=== PATIENT | female | born 1995 | race Asian ===

== ENCOUNTER 2018-10-19 13:13 | Emergency (ER) | payer OTHER ==
[~2018-10-19] VITALS: Ht 162.6 cm; Wt 113.4 kg
[2018-10-19 15:22] LABS: PLATELET COUNT 255 K/uL (152-353)
[2018-10-19 15:44] LABS: POTASSIUM 3.7 mmol/L (3.6-5.2)
[2018-10-19 16:35] VITALS: BP 120/70; TEMP 98
== END 2018-10-19 16:35 | disposition home or self-care (01) ==
LOC: ED 13:13
PROVIDERS: Family Medicine
DX: K52.9 Noninfective gastroenteritis and colitis, unspecified (principal)
CPT/HCPCS: 80053; 81000; 85027; 99283

== ENCOUNTER 2019-03-03 20:20 | Emergency (ER) | payer OTHER ==
[~2019-03-03] VITALS: Ht 162.6 cm; Wt 104.3 kg
[2019-03-03 22:00] VITALS: BP 138/78; TEMP 98.3
== END 2019-03-03 22:00 | disposition home or self-care (01) ==
LOC: ED 20:20
DX: J06.9 Acute upper respiratory infection, unspecified (principal); K64.9 Unspecified hemorrhoids
CPT/HCPCS: 87502; 87651; 99283

== ENCOUNTER 2019-10-24 17:25 | Emergency (ER) | payer OTHER ==
[~2019-10-24] VITALS: Ht 162.6 cm; Wt 104.3 kg
[2019-10-24 19:00] VITALS: BP 131/83; TEMP 98.7
== END 2019-10-24 19:00 | disposition home or self-care (01) ==
LOC: ED 17:25
DX: J01.00 Acute maxillary sinusitis, unspecified (principal); Z11.59 Encounter for screening for other viral diseases
CPT/HCPCS: 87635; 96372; 99283; G2023; J1100; U00003